=== PATIENT | female | born 1975 | race Caucasian/White ===

== ENCOUNTER 2018-08-21 19:28 | Emergency (ER) | payer BC ==
--- NOTE | 2018-08-21 19:44 | PDOC ---
Rapid Medical Evaluation Time Seen by Provider: 08/21/18 19:42 Medical Evaluation: 08/21/18 19:43 I performed a brief in-person evaluation of this patient. Chief complaint: Headache s/p heavy picture frame fell on bed x 1 wk ago, referred from Urgent Care Pertinent physical exam findings: Alert, responsive, no neurologic deficits I have ordered the following: Pgu Patient will proceed to the ED for further evaluation. Discharge Disposition - Diagnosis Headache - Referrals - Patient Instructions - Post Discharge Activity
[2018-08-21 19:47] VITALS: BP 129/84; PULSE 80; TEMP 97.8; BMI 24.9
[2018-08-21] MEDS ORDERED: predniSONE 20 MG TABLET (UD) PO ONE (20:21)
[2018-08-21] MEDS ORDERED: diphenhydrAMINE HCL 25 MG CAPSULE (FP) PO ONE ×2 (20:21→20:26)
[2018-08-21] MEDS ORDERED: IBUPROFEN 600 MG TABLET (FP) PO ONE ×2 (20:21→20:26)
[2018-08-21] MEDS ORDERED: ONDANSETRON *ODT* 4 MG TABLET SL ONE (20:22)
--- NOTE | 2018-08-21 20:26 | PDOC ---
History of Present Illness - General Chief Complaint: Headache Stated Complaint: PCP SENT/HEADACHE Time Seen by Provider: 08/21/18 19:42 History Source: Patient Exam Limitations: No Limitations - History of Present Illness Initial Comments: Patient is a 43-year-old female who states that a week ago a frame hit her on top of her head. She denies loss of consciousness. She states over the past week she has intermittently had a headache all over. She describes the pain as a throb and rates it at a 7 out of 10. She denies taking any analgesics today. She denies being on anticoagulants and denies visual disturbances. She admits to nausea however denies vomiting. She denies otorrhea or rhinorrhea. Patient denies aggravating or relieving factors. 08/21/18 20:22 Past History - Travel Traveled outside of the country in the last 30 days: No - Past Medical History Allergies/Adverse Reactions: Allergies Allergy/AdvReac Type Severity Reaction Status Date / Time No Known Allergies Allergy Verified 08/21/18 19:46 Home Medications: Ambulatory Orders NK [No Known Home Medication] 08/21/18 COPD: No - Suicide/Smoking/Psychosocial Hx Smoking History: Never smoked Have you smoked in the past 12 months: No Information on smoking cessation initiated: No Hx Alcohol Use: No Drug/Substance Use Hx: No Review of Systems - Review of Systems Able to Perform ROS?: Yes Constitutional: No: Chills, Fever Neurological: Yes: Headache All Other Systems: Reviewed and Negative *Physical Exam - Vital Signs Last Vital Signs Temp Pulse Resp BP Pulse Ox 97.8 F 80 16 129/84 100 08/21/18 19:44 08/21/18 19:44 08/21/18 19:44 08/21/18 19:44 08/21/18 19:44 - Physical Exam Comments: Constitutional: VS stated, pt appears in no apparent distress; sitting in chair. Skin: Warm and dry. Intact, no lesions or excoriations. Head: Normocephalic; atraumatic Eyes: Extraocular movements intact, PERRL, conjunctiva pink without injection or discharge. Lids normal; no periorbital edema or erythema. Vision subjectively normal or at baseline. Ears: No tenderness present. Canals without injection or discharge; TM clear, no retractions or bulging. Nose: Patent, mucosa pink. No drainage. Sinuses: No tenderness over frontal and maxillary sinuses. Throat: Oropharynx with pink and moist mucosa. Dentition good. No pharyngeal edema; erythema or exudate. Tongue normal, no fasciculations. Airway Patent. Hypoglossal area is soft. Uvula is midline. No trismus. Neck: Supple, non-tender, with full ROM, trachea midline, no anterior/posterior cervical chain lymphadenopathy, Lungs: Bilateral breath sounds clear upon auscultation. No adventitious breath sounds. Heart: Regular rate and rhythm, S1/S2 auscultated. No murmurs, rubs, or gallops. No visible pulsations, heaves, or lifts on precordium. Musculoskeletal: Moves all extremities without difficulty Neurologic: Awake, alert. Conversation fluent. Normal attention. Oriented to person, place, and time. Cranial nerves 1-12 intact. Gross sensory and motor strength intact; cerebellar function normal. Steady gait noted, deep tendon reflexes within normal range. Extremities: Warm to touch. No signs of clubbing or edema. No pain on ROM. Pulses full and symmetric, cap refill less than 2 seconds. 08/21/18 20:23 Moderate Sedation - Procedure Monitoring Vital Signs: Procedure Monitoring Vital Signs Temperature 97.8 F 08/21/18 19:44 Pulse Rate 80 08/21/18 19:44 Respiratory Rate 16 08/21/18 19:44 Blood Pressure 129/84 08/21/18 19:44 O2 Sat by Pulse Oximetry (%) 100 08/21/18 19:44 Medical Decision Making - Medical Decision Making 08/21/18 20:24 Pt has no red flag signs warranting a head CT. She was given Zofran, Benadryl, Ibuprofen and Prednisone. 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 *DC/Admit/Observation/Transfer Diagnosis at time of Disposition: Headache Qualifiers: Headache type: unspecified Headache chronicity pattern: acute headache Intractability: not intractable Qualified Code(s): R51 - Headache - Discharge Dispostion Disposition: HOME Condition at time of disposition: Stable - Referrals Referrals: Vin Novoa MD [Staff Physician] - - Patient Instructions Printed Discharge Instructions: DI for Headache Additional Instructions: Take Ibuprofen 600 mg every 6 hours. F/U with your PCP. I have provided you with a name and number. - Post Discharge Activity
[2018-08-21] MEDS ORDERED: ONDANSETRON *ODT* 4 MG TABLET ONE (20:27)
[2018-08-21] MEDS ORDERED: predniSONE 20 MG TABLET (UD) ONE (20:27)
== END 2018-08-21 20:44 | disposition home or self-care (01) ==
LOC: JERFT 19:28
DX: R51 Headache (principal); W22.8XXA Striking against or struck by other objects, initial encounter; Y93.89 Activity, other specified; Y92.032 Bedroom in apartment as the place of occurrence of the external cause; Y99.8 Other external cause status
CPT/HCPCS: 84703; 99281-25; Q0162